=== PATIENT | male | born 1985 | race Caucasian/White ===

== ENCOUNTER 2019-04-19 09:08 | Emergency (ER) | payer SELFPAY ==
[2019-04-19 09:14] VITALS: BP 128/79; PULSE 67; TEMP 98; BMI 27.1
[2019-04-19] MEDS ORDERED: KETOROLAC TROMETHAMINE 30 MG/1 ML VIAL IM ONE (09:49)
[2019-04-19] MEDS ORDERED: CYCLOBENZAPRINE HCL 10 MG TABLET (FP) PO ONE (09:50)
--- NOTE | 2019-04-19 09:54 | PDOC ---
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 Reports pain sensation as tightening of muscle that is worse with movement. Denies bladder or bowel dysfunction. Occurred: reports: last week Severity: reports: mild Pain Location: reports: back Method of Injury: Yes: other (heavy lifting) Modifying Factors: improves with: pain medication, rest Loss of Consciousness: no loss of consciousness Associated Symptoms (Fall): denies symptoms Past History - Travel Traveled outside of the country in the last 30 days: No Close contact w/someone who was outside of country & ill: No - Past Medical History Allergies/Adverse Reactions: Allergies Allergy/AdvReac Type Severity Reaction Status Date / Time No Known Allergies Allergy Verified 04/19/19 09:14 Home Medications: Ambulatory Orders Cyclobenzaprine HCl [Flexeril -] 10 mg PO TID #21 tablet 04/19/19 Ibuprofen 600 mg PO TID #30 tablet 04/19/19 COPD: No - Surgical History Cholecystectomy: No - Immunization History Immunization Up to Date: No - Suicide/Smoking/Psychosocial Hx Smoking History: Never smoked Have you smoked in the past 12 months: No Information on smoking cessation initiated: No Hx Alcohol Use: No Drug/Substance Use Hx: No Trauma Specific PMHX - Complaint Specific PMHX Arthritis: No Back Injury: No Neck Injury: No Hx Sacro Iliac Joint Dysfunction: No Review of Systems - Review of Systems Able to Perform ROS?: Yes Is the patient limited [place]er proficient: No Constitutional: No: Chills, Fever HEENTM: No: Nose Congestion, Throat Pain, Throat Swelling, Difficulty Swallowing Respiratory: No: Wheezing Cardiac (ROS): No: Chest Pain, Palpitations ABD/GI: No: Constipated, Poor Appetite, Poor Fluid Intake, Vomiting, Indigestion : No: Burning, Dysuria, Pain Musculoskeletal: Yes: Back Pain. No: Joint Pain, Joint Swelling Integumentary: No: Bruising Neurological: No: Numbness, Paresthesia, Weakness Hematologic/Lymphatic: No: Blood Clots, Easy Bleeding *Physical Exam - Vital Signs Last Vital Signs Temp Pulse Resp BP Pulse Ox 98.0 F 67 18 128/79 96 04/19/19 09:12 04/19/19 09:12 04/19/19 09:12 04/19/19 09:12 04/19/19 09:12 - Physical Exam General Appearance: Yes: Nourished, Appropriately Dressed, Apparent Distress HEENT: positive: SUSANNA, TMs Normal, Pharynx Normal Neck: positive: Supple. 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 back pain -analgesia, -muscle relaxant -lumbar spine films 04/19/19 10:40 xray with straightening due to muscle spasm rx: muscle relaxant pain medication referral to orthopedic *DC/Admit/Observation/Transfer Diagnosis at time of Disposition: Back pain Qualifiers: Back pain location: low back pain Chronicity: acute Back pain laterality: left Sciatica presence: without sciatica Qualified Code(s): M54.5 - Low back pain - Discharge Dispostion Disposition: HOME Condition at time of disposition: Good Decision to Admit order: No - Prescriptions Prescriptions: Cyclobenzaprine HCl [Flexeril -] 10 mg PO TID #21 tablet Ibuprofen 600 mg PO TID #30 tablet - Referrals Referrals: Jaret Hurst MD [Staff Physician] - - Patient Instructions Printed Discharge Instructions: Low Back Pain Additional Instructions: Pain apply warm compress to the area Take medication as prescribed, do not operate vehicles while taking muscle relaxant Call orthopedics for further evaluation if symptoms persist Return for numbness or tingling in limbs Print Language: KHMER - Post Discharge Activity Forms/Work/School Notes: Back to Work
[2019-04-19] MEDS ORDERED: CYCLOBENZAPRINE HCL 10 MG TABLET (FP) ONE (09:55)
[2019-04-19] MEDS ORDERED: KETOROLAC TROMETHAMINE 30 MG/1 ML VIAL ONE (09:55)
== END 2019-04-19 11:06 | disposition home or self-care (01) ==
LOC: JERFT 09:08
PROC: 3E0233Z Introduction of Anti-inflammatory into Muscle, Percutaneous Approach (ICD-10-PCS; principal; 2019-04-19)
DX: M54.5 Low back pain (principal); X50.0XXA Overexertion from strenuous movement or load, initial encounter; Y93.H3 Activity, building and construction; Y92.61 Building [any] under construction as the place of occurrence of the external cause; Y99.0 Civilian activity done for income or pay
CPT/HCPCS: 72100-TC-FY; 99282-25

== ENCOUNTER 2019-08-30 18:02 | Emergency (ER) | payer OTHER ==
--- NOTE | 2019-08-30 18:12 | PDOC ---
Rapid Medical Evaluation Time Seen by Provider: 08/30/19 18:10 Medical Evaluation: Allergies Allergy/AdvReac Type Severity Reaction Status Date / Time No Known Allergies Allergy Verified 04/19/19 09:14 08/30/19 18:10 Pt c/o: low back pain radiating left leg x 4 days , worse with standing and walking, works as construction equipment operator Pt on brief exam: ambulatory, left sciatica tenderness pt ordered for: lumbar xray not ordered (previous 04/22), flexeril and toradol Pt to proceed to the ED Discharge Disposition - Diagnosis Back pain, Lumbar radiculopathy - Discharge Dispostion Disposition: HOME Condition at time of disposition: Stable - Prescriptions Prescriptions: Cyclobenzaprine HCl [Flexeril 10 mg] 10 mg PO HS PRN #10 tablet PRN Reason: Muscle Spasms Ibuprofen [Motrin -] 600 mg PO TID #30 tablet - Referrals Referrals: Asif Collier MD, [facility] [Staff Physician] - - Patient Instructions Additional Instructions: Please start the Motrin tomorrow as well as the Flexeril. You were given both medications in the emergency room. Return to the emergency room for worsening symptoms and without fail follow-up with neurosurgery in 2 to 3 days for further evaluation and treatment options. - Post Discharge Activity Work/School Note: Back to Work
[2019-08-30 18:13] VITALS: BP 126/56; PULSE 85; TEMP 98.4; BMI 31.4
[2019-08-30] MEDS ORDERED: KETOROLAC TROMETHAMINE 60 MG/2 ML VIAL IM ONE (18:13)
[2019-08-30] MEDS ORDERED: CYCLOBENZAPRINE HCL 10 MG TABLET (FP) PO ONE (18:13)
[2019-08-30] MEDS ORDERED: KETOROLAC TROMETHAMINE 60 MG/2 ML VIAL ONE (18:40)
[2019-08-30] MEDS ORDERED: CYCLOBENZAPRINE HCL 10 MG TABLET (FP) ONE (18:40)
[2019-08-30] MEDS ORDERED: CYCLOBENZAPRINE HCL 5 MG TABLET PO SCH (18:45)
--- NOTE | 2019-08-30 18:46 | PDOC ---
History of Present Illness - General Chief Complaint: Back Pain Stated Complaint: LOWER BACK PAIN Time Seen by Provider: 08/30/19 18:10 - History of Present Illness Initial Comments: 08/30/19 18:44 33-year-old male without comorbidities presents for evaluation of lower back pain with left leg radicular symptoms x2 days. History of similar symptoms patient has no systemic symptoms loss of bowel or bladder function or saddle paresthesias. He complains of pain down all the way to his foot Past History - Past Medical History Allergies/Adverse Reactions: Allergies Allergy/AdvReac Type Severity Reaction Status Date / Time No Known Allergies Allergy Verified 04/19/19 09:14 Home Medications: Ambulatory Orders Cyclobenzaprine HCl [Flexeril -] 10 mg PO TID #21 tablet 04/19/19 Ibuprofen 600 mg PO TID #30 tablet 04/19/19 Cyclobenzaprine HCl [Flexeril 10 mg] 10 mg PO HS PRN #10 tablet 08/30/19 Ibuprofen [Motrin -] 600 mg PO TID #30 tablet 08/30/19 COPD: No - Surgical History Cholecystectomy: No - Immunization History Immunization Up to Date: No - Psycho Social/Smoking Cessation Hx Smoking History: Never smoked Have you smoked in the past 12 months: No Information on smoking cessation initiated: No Hx Alcohol Use: No Drug/Substance Use Hx: No Review of Systems - Review of Systems Constitutional: No: Fever : No: Incontinence Musculoskeletal: Yes: Back Pain Neurological: No: Paresthesia *Physical Exam - Vital Signs Last Vital Signs Temp Pulse Resp BP Pulse Ox 98.4 F 85 18 126/56 L 98 08/30/19 18:11 08/30/19 18:11 08/30/19 18:11 08/30/19 18:11 08/30/19 18:11 - Physical Exam 08/30/19 18:44 Lumbar spine skin color and temperature normal range of motion is limited. There is no midline tenderness. Moderate bilateral paralumbar musculature spasm and tenderness. 5 out of 5 strength left lower extremity 5 out of 5 on the right positive straight leg raise test no gross sensorimotor deficits neurovascular intact Discharge - Discharge Information Problems reviewed: Yes Clinical Impression/Diagnosis: Back pain, Lumbar radiculopathy Condition: Stable Disposition: HOME - Admission No - Additional Discharge Information Prescriptions: Cyclobenzaprine HCl [Flexeril 10 mg] 10 mg PO HS PRN #10 tablet PRN Reason: Muscle Spasms Ibuprofen [Motrin -] 600 mg PO TID #30 tablet - Follow up/Referral Referrals: Asif Collier MD, [facility] [Staff Physician] - - Patient Discharge Instructions Additional Instructions: Please start the Motrin tomorrow as well as the Flexeril. You were given both medications in the emergency room. Return to the emergency room for worsening symptoms and without fail follow-up with neurosurgery in 2 to 3 days for further evaluation and treatment options. - Post Discharge Activity Work/Back to School Note: Back to Work
== END 2019-08-30 18:53 | disposition home or self-care (01) ==
LOC: JERFT 18:02
PROC: 3E0233Z Introduction of Anti-inflammatory into Muscle, Percutaneous Approach (ICD-10-PCS; principal; 2019-08-30)
DX: M54.16 Radiculopathy, lumbar region (principal)
CPT/HCPCS: 96372; 99281-25